=== PATIENT | female | born 1970 | race Caucasian/White ===

== ENCOUNTER 2016-07-08 11:18 | Emergency (ER) | payer OTHER ==
[~2016-07-08] VITALS: Ht 157.5 cm; Wt 75.0 kg
[~2016-07-08 11:18] MED LIST: CALC600T85 PO; GABA100C PO; LANO3.5O OP; LEVO200T PO; OXY5 PO; PRE10 PO; RISE35TA11 PO
[2016-07-08 11:29] VITALS: BP 113/74; PULSE 100; RESP 44; O2SAT 96
--- NOTE | 2016-07-08 11:37 | ED.REPORT ---
HPI-Dyspnea / Wheezing Date of Service July 08, 2016 ED Provider: Gene Vera DO A 45 year old female with a history of lupus, pleurisy, Sjgren's syndrome, blood clots and hypothyroidism is referred to the ED by her PCP due shortness of breath. The pt has been experiencing shortness of breath for three days and had oxygen levels of 89% with exertion in the office of her PCP. She was extremely short of breath today and unable to speak in anything greater than one word sentences. She also admits to right leg pain x5 days but denies lower extremity edema and states that the pain is different than the last time she had a blood clot. She believes that her symptoms are related to her pleurisy. Nursing Notes Stated Complaint: SHORT OF BREATH Chief Complaint: Respiratory Distress Nursing Notes Reviewed: Yes Allergies: Coded Allergies: acetaminophen (Verified Allergy, Severe, 11/30/13) fever and vomiting codeine (Verified Allergy, Severe, 11/30/13) fever and vomiting etodolac (Verified Allergy, Severe, 12/26/08) fever and vomiting TAPE (Verified Allergy, Intermediate, blisters ( paper tape ok ), 11/30/13) latex (Verified Allergy, Intermediate, blisters, 11/30/13) Sulfa (Sulfonamide Antibiotics) (Verified Allergy, Unknown, 11/30/13) Uncoded Allergies: Opiate Agonists (Narcotics) (Allergy, Mild, 12/16/03) N/V, FEVER Scheduled Calcium Carbonate (Caltrate 600) 600 Mg Tablet 600 MG PO DAILY Gabapentin-Expunged Drug, Do Not Renew! (Neurontin-Expunged Drug, Do Not Renew! ) 100 Mg Capsule 100 MG PO BID TAKE 1 TABLET BY MOUTH IN THE MORNING AND 2 TABLETS (200MG) IN THE EVENING. INCREASE AFTER 5 DAYS TO 2 TABLETS (200MG) IN THE AM AND 3 TABS (300MG) IN THE EVENING Levothyroxine -Expunged Drug, Do Not Renew! (Levoxyl-Expunged Drug, Do Not Renew !) 200 Mcg Tablet 200 MCG PO DAILY Lidocaine (Lidoderm) 700 Mg Adh..patch 1 PATCH TP UD Petrol/Lanolin/Min Oil (LacriLube S.O.P.) 1 Appl/Gm Oint 0 OP QID APPLY TO EYE THREE TIMES A DAY AND AT BEDTIME For treatment of dry eyes PredniSONE-Expunged Drug, Do Not Renew! (PredniSONE-Expunged Drug, Do Not Renew! ) 10 Mg Tab 10 MG PO AM Risedronate-Expunged Drug, Do Not Renew! (Risedronate-Expunged Drug, Do Not Renew!) 35 Mg Tablet 35 MG PO oxyCODONE-Expunged, Do Not Renew! (oxyCODONE-Expunged, Do Not Renew!) 5 Mg Tablet 5-10 MG PO QIDP TAKE 1-2 TABLETS BY MOUTH UP TO FOUR TIMES A DAY NEEDED General Time Seen by MD: 11:36 Chief Complaint Shortness of breath Hx Obtained From: Patient Arrived By: Wheelchair Sudden in Onset?: No Onset Occurred: 3 days ago Symptom Duration: Since onset Recent Healthcare: Recent doctor visit, Recent hospitalization Similar Sx Previous: Yes Past Medical History Past Medical History hypothyroidism Sjgren's syndrome systemic lupus blood clots Past Surgical History breast reduction left lumpectomy Reports: Tubal ligation Smoking History Current Every Day Smoker Social History Alcohol Use: "Social" Ambulatory Status Wheelchair Review of Systems Review of Systems Note: denies lower extremity edema Respiratory: Reports: Shortness of breath, Denies: Non-productive cough Musculoskeletal: Reports: Extremity pain (right leg) Complete sys rev & neg: except as marked. Physical Exam Initial Vital Signs Vital Signs (First) Date Time Temp Pulse Resp B/P Pulse Ox O2 Delivery O2 Flow Rate FiO2 07/08/16 11:29 100 44 113/74 96 Room Air 07/08/16 11:53 2 Initial VS: Reviewed General/Constitutional: Awake, Alert Distress / Hydration: Positive: Distress moderate Neck: Atraumatic, Supple, Full range of motion Respiratory / Chest: Atraumatic, Breath sounds NL, Breath sounds = bilat tachypneic Cardiovascular: Heart rate NL, Regular rhythm, Heart sounds NL ENT: Atraumatic, Airway patent, Mucous membranes moist Abdomen: Atraumatic, Non-tender Back: Atraumatic, Full range of motion Lower Extremity / Pelvis / MS: Atraumatic, Full range of motion Skin: Atraumatic, Color NL, No rash, Warm, Dry Neurologic: Oriented X3, Speech NL, No motor deficits, No sensory deficits Head / Eyes: Atraumatic, Normocephalic, PERRL, EOMI Upper Extremity / MS: Atraumatic, Full range of motion Psychiatric: Affect NL, Mood NL Interpretation & Diagnostics Interpretation & Diagnostics: CT Angio Chest: IMPRESSION: 1. No pulmonary emboli are evident. 2. Hazy parenchyma of the lungs with intralobular septal prominence may be related to shallow inspiration. However, this appearance may be seen in the setting of pulmonary edema and clinical correlation is recommended. 3. Scattered areas of atelectasis and/or scarring are noted. 4. Borderline prominent axillary lymph nodes are similar to previous studies. Dictated by: Yunior Huddleston M.D. on 07/08/2016 at 12:31 Approved by: Yunior Huddleston M.D. on 07/08/2016 at 12:44 Lab Results Interpretation Result Diagram: 07/08/16 1140 07/08/16 1140 Test 07/08/16 11:40 White Blood Count 5.8th/mm3 (3.8-10.1) Red Blood Count 4.60mil/mm3 (3.90-5.20) Hemoglobin 13.9g/dL (12.0-15.6) Hematocrit 41.9% (35.0-46.0) Mean Corpuscular Volume 91.1fL (81-100) Mean Corpuscular Hemoglobin 30.2pg (27.0-35.0) Mean Corpuscular Hemoglobin Concent 33.2% (32.0-37.0) Red Cell Distribution Width 13.6% (12.3-15.4) Platelet Count 163bil/L (150-400) Neutrophils (%) (Auto) 78.2% (40-74) Lymphocytes (%) (Auto) 16.1% (14-46) Monocytes (%) (Auto) 4.1% (4-12) Eosinophils (%) (Auto) 1.2% (0-5) Basophils (%) (Auto) 0.2% (0-3) Hold Purple Top Tube Received (Received) Prothrombin Time 9.9sec (8.1-12.5) Prothromb Time International Ratio 0.93ratio Activated Partial Thromboplast Time 24.7sec (22.8-33.0) D-Dimer 5.13mg/L FEU (<0.50) Hold Blue Top Tube Received (Received) Sodium Level 134mEq/L (134-144) Potassium Level 4.3mEq/L (3.5-5.2) Chloride Level 99mEq/L (97-108) Carbon Dioxide Level 22mmol/L (18-29) Blood Urea Nitrogen 9mg/dL (6-24) Creatinine 0.65mg/dL (0.57-1.00) Estimat Glomerular Filtration Rate 142mL/min (>59) Glucose Level 105mg/dL (60-99) Calcium Level 9.3mg/dL (8.5-10.1) Magnesium Level 2.1mg/dL (1.6-2.6) Total Bilirubin 1.1mg/dL (0.0-1.2) Aspartate Amino Transf (AST/SGOT) 53U/L (0-50) Alanine Aminotransferase (ALT/SGPT) 39U/L (0-32) Alkaline Phosphatase 319U/L (25-150) Troponin T 0.010ug/L (0.0-0.011) Pro-B-Type Natriuretic Peptide 142.3pg/mL (0-130) Total Protein 8.7g/dL (6.4-8.4) Albumin 3.7g/dL (3.4-5.0) Hold Scuddy Top Tube Received (Received) Hold Knapp Top Tube Received (Received) Lab Results Interpretation: LFT's chronically abnormal ECG Interpretation ECG Interpretation: normal sinus rhythm with a rate of 91 left axis deviation Time: 11:59 Interpreted by: ED physician Re-Eval/Medical Decision Med Decision/Clinical Course Concerning initially for pulmonary embolism. Lungs other causes of chest pain, and the patient however relates that this is exactly like her prior episodes of pleurisy. Her CT is negative, after pain management her oxygen is improved. Discussed with her primary care who agrees to secure close follow-up and recommend Lidoderm patches. Return and follow-up precautions given. Source of Hx: Old records Consultation : Referral / Consult Name: Stephanie Patel MD Call Returned at: 14:38 Note: Spoke with Dr. Patel, PCP, regarding pt's case. Dr. Patel recommends lidoderm patches and agrees to see the pt in follow up. Counseled Regarding: Diagnosis, Lab results, Need for follow-up, When/why to return to ED Discharge & Departure Impression: Primary Impression: Pleurisy Disposition: Home Discharge Condition All VS Reviewed: Yes Condition: Stable Additional Instructions: This may truly be related to your pleurisy. There is no evidence of pulmonary embolism. try lidocaine patches for pain. folllow up with Dr. Patel, you have an appointment on july 11, check in at 1015 am. Return to the ER as needed for concerning or worsening symptoms. Referrals: Stephanie Patel MD (PCP) Radha Attestation Portions of this note were transcribed by Samantha Ball. I, Dr. Vera personally performed the history, physical exam and medical decision-making; I reviewed and confirmed the accuracy of the information in the transcribed note. Signed by: Radha Lock, 07/08/2016 and 1154. copies to: Stephanie Patel MD, Timothy Kei العلي July 08, 2016 11:37 SAMANTHA BALL July 08, 2016 11:47
[2016-07-08] MEDS ORDERED: Ondansetron 2 mg/mL 2 mL Inj IVPUSH ONE (11:50)
[2016-07-08] MEDS ORDERED: 0.9% Sodium Chloride 1,000 ML IV ONE (11:50)
[2016-07-08 11:53] VITALS: BP 113/74; PULSE 96; RESP 33; O2SAT 96
[2016-07-08 12:28] LABS: BASOPHILS % (AUTO) 0.2 % (0-3); EOSINOPHILS % (AUTO) 1.2 % (0-5); MONOCYTES % (AUTO) 4.1 % (4-12); Mean Corpuscular Hemoglobin 30.2 pg (27.0-35.0); Mean Corpuscular Volume 91.1 fL (81-100); NEUTROPHILS % (AUTO) 78.2 % (40-74); Platelet Count 163 bil/L (150-400)
[2016-07-08 12:35] LABS: INR 0.93 ratio
[2016-07-08 12:41] LABS: TROPONIN T 0.01 ug/L (0.0-0.011)
[2016-07-08 12:43] LABS: D-Dimer 5.13 mg/L FEU (<0.50)
[2016-07-08 12:52] LABS: Magnesium 2.1 mg/dL (1.6-2.6)
--- NOTE | 2016-07-08 13:46 | DRSVH ---
PROCEDURE: CT ANGIO CHEST PULMONARY EMBOLISM ([id number]) INDICATIONS: chest pain, hypoxia, lupus, h/o DVT TECHNIQUE: After the administration of intravenous contrast, 2 mm thick sections acquired from the pulmonary api dileep to the posterior costophrenic angles. 3-dimensional maximum intensity projection (MIP) coronal a nd sagittal reformats were then acquired through the thorax. For radiation dose reduction, the follo wing was used: automated exposure control, adjustment of mA and/or kV according to patient size. COMPARISON: [facility], CT, CHEST HI-RESOLUTION, 08/24/2014, 11:01. [facility], CT, CHEST W/O CONTRAST, 02/16/2014, 12:27. [facility], CT, CHEST ANGIO-PE, 05/01/2009 , 16:52. FINDINGS: Image quality: Diagnostic. Pulmonary arteries: Pulmonary arteries are normal in size, and demonstrate no intraluminal filling d efects to suggest central pulmonary embolism. Lungs and pleura: Respiratory motion artifact does result in difficulty accurately evaluating the janene gs. There is no lobar consolidation, pleural effusion, or pneumothorax. Intralobular septal thicken ing is identified. There is diffuse hazy increased density of the lungs. There are areas of atelect asis and/or scarring within the lung bases. No lung masses are evident. Evaluation for pulmonary no dules is inadequate on this exam related to respiratory motion artifact. There is elevation of the r ight diaphragm, similar to prior studies. Mediastinum: Heart size is normal, without pericardial effusion. No mediastinal or hilar adenopathy . Thoracic aorta is normal in caliber and enhancement. Esophagus is normal in caliber, without hiat al hernia. Bones and chest wall: No suspicious bony lesions. Ribs and thoracic spine appear intact throughout. Thyroid gland is not enlarged. Borderline prominent right axillary lymph nodes are identified, whi ch are similar to previous exams. Abdomen: Visualized upper abdominal solid organs appear normal in the early arterial phase of enhanc ement. IMPRESSION: 1. No pulmonary emboli are evident. 2. Hazy parenchyma of the lungs with intralobular septal prominence may be related to shallow inspir ation. However, this appearance may be seen in the setting of pulmonary edema and clinical correlati on is recommended. 3. Scattered areas of atelectasis and/or scarring are noted. 4. Borderline prominent axillary lymph nodes are similar to previous studies. Dictated by: Yunior Huddleston M.D. on 07/08/2016 at 12:31 Approved by: Yunior Huddleston M.D. on 07/08/2016 at 12:44
[2016-07-08 13:59] VITALS: BP 117/42; PULSE 75; RESP 20; O2SAT 97
[2016-07-08] MEDS ORDERED: LIDO700A6 TP (14:45)
[2016-07-08 15:10] VITALS: BP 115/78; PULSE 71; RESP 23; O2SAT 95
== END 2016-07-08 15:12 | disposition home or self-care (01) ==
LOC: SED 11:18
DX: R09.1 Pleurisy (principal); E03.9 Hypothyroidism, unspecified; F17.200 Nicotine dependence, unspecified, uncomplicated; Z88.2 Allergy status to sulfonamides; Z88.5 Allergy status to narcotic agent; Z88.8 Allergy status to other drugs, medicaments and biological substances; Z91.040 Latex allergy status; Z91.048 Other nonmedicinal substance allergy status
CPT/HCPCS: 36415; 71275; 80053; 83735; 83880; 84484; 85025; 85378; 85610; 85730; 93005; 96361; 96374; 96375; 99285; J2270; J2405; J7030; Q9967